=== PATIENT | male | born 1965 | race Caucasian/White ===

== ENCOUNTER 2016-07-17 14:06 | Emergency (ER) | payer SELFPAY ==
[2016-07-17 14:20] VITALS: BP 155/69; BMI 51.3
--- NOTE | 2016-07-17 14:50 | DR.GENAD ---
HPI - PCP Primary Care Physician: nfd - Complaint/Symptoms Chief Complaint:: patient stated 2 days patient said he steped on a pot hole. and yesterday he just laid in bed all day untill todaywhen he said his leg got worse. Self Treatment fo Chief Complaint: none - Nurses notes reviewed Nurses Notes Review: Yes - Source History Provided: Patient - Mode of Arrival Mode of Arrival: Wheelchair - Timing Onset of Chief Complaint: 07/15/16 Came on: Suddenly - Duration Duration: Constant How lon Duration: Days - Location Location: left knee - Severity Severity: Moderate - Modifying Factors Worsens:: movement - Associated Signs and Symptoms Associated Signs and Symptoms: swelling pain PMH - PMH Past Medical History: Yes Past Medical History: COPD, Migraines, Headaches, Hypertension Past Surgical History: Yes Surgical History: Ortho Surgery - Family History History of Family Medical Conditions: Yes Family Medical History: Diabetes Mellitus, Coronary Artery Disease, Hypertension - Social History Does patient currently use any type of tobacco product: Yes Have you used tobacco products in the last 12 months: Yes Type of Tobacco Use: Cigarettes How many years tobacco product used: 5 Does any household member use tobacco: No Alcohol Use: Occasionally Do you use any recreational Drugs:: No Lives With: Family Lives Where: Home - infectious screening In the last 2 months have you had wt loss of >10#?: NO Have you had fever, night sweats or hemotysis?: No Have you traveled outside the country in the last 6 months?: No Isolation: Standard ROS - Review of Systems Constitutional: No Symptoms Reported Eyes: No Symptoms Reported ENTM: No Symptoms Reported Respiratoy: No Symptoms Reported Cardiovascular: No Symptoms Reported Gastrointestinal/Abdominal: No Symptoms Reported Genitourinary: No Symptoms Reported Neurological: No Symptoms Reported Musculoskeletal: Left (pain), Knee Integumentary: No Symptoms Reported Hematologic/Lymphatic: No Symptoms Reported Endocrine: No Symptoms Reported Psychiatric: No Symptoms Reported PE - Vital Signs Vitals: Temperature 98.4 F Pulse Rate 103 Respiratory Rate 16 Blood Pressure 155/69 O2 Sat by Pulse Oximetry 98 - General Limitations: No Limitations General Appearance: Alert - Head Head Exam: Normal Inspection - Eyes Eye exam: EOMI. negative: Scleral Icterus, Conjunctival Injection - ENT ENT Exam: Normal Exam External Ear Exam: Normal External Inspection Nose Exam: Normal Nose Exam Mouth Exam: Normal Inspection - Neck Neck Exam: Normal Inspection, Full ROM, Trachea Midline - Chest Chest Inspection: Normal Inspection - Respiratory Respiratory Exam: negative: Accessory Muscle Use, Respiratory Distress - Extremities Extremities Exam: Normal Inspection, Tenderness (left knee). negative: Full ROM - Neurologic Neurological Exam: Alert, Oriented X3, CN II-XII Intact - Psychiatric Psychiatric Exam: Normal Mood - Skin Skin Exam: Intact, Normal Color ROR - XRAY XRAY Interpreted by: Radiologist XRAY Findings: left knee: lateral tibia plateau fx Procedures - Splinting Splint: knee immobilizer - Diagnosis Discharge Problem: Knee fracture, left - Discharge Plan Condition: Stable Prescriptions: Hydrocodone-Acetaminophen [Lortab 5-325 mg] 1 tab PO Q4-6H PRN #24 tab PRN Reason: Pain - Follow ups/Referrals Follow ups/Referrals: NFD,None [Primary Care Provider] - 3 days - Instructions
[2016-07-17] MEDS ORDERED: TORADOL 60 MG VIAL IM ONE (14:54)
[2016-07-17] MEDS ORDERED: TORADOL 60 MG VIAL ONE (15:05)
--- NOTE | 2016-07-17 15:35 | RAD ---
Left knee four views Indication: Pain after injury here. Audible popping noise. Findings: There is lateral tibial plateau fracture, minimally displaced. Joint effusion is present. There is degenerative change with multi compartment joint space narrowing. Impression: Lateral tibial plateau fracture. Consider CT followup or MR followup to further characte rize and evaluate for ligament injury. THE AVAILABILITY OF THE REPORT AND FINDINGS WERE COMMUNICATED TO Dr. George by Dr. Cardona on July 17, 2016 at 3:24 p.m. Reported By:
== END 2016-07-17 15:56 | disposition home or self-care (01) ==
LOC: ER 14:24
DX: S82.123A Displaced fracture of lateral condyle of unspecified tibia, initial encounter for closed fracture (principal); W17.2XXA Fall into hole, initial encounter; Y92.9 Unspecified place or not applicable
CPT/HCPCS: 29505; 73564; 96372; 99283; J1885

== ENCOUNTER 2016-07-26 22:54 | Emergency (ER) | payer SELFPAY ==
[2016-07-26 23:11] VITALS: BP 155/73; BMI 51.8
--- NOTE | 2016-07-27 00:31 | DR.GENAD ---
HPI - PCP Primary Care Physician: nfd - Complaint/Symptoms Chief Complaint Doctors Comments: Patient was sustaine a fracture of the left lower extremity seven days ago.He had a cast placed and it was removed by patient stating the his led was swelling. He was seen two days ago in [place] for evaluation of the left extremity which was swollen, patient took off the cast he has been take twice as much medication as prescribed. He weights 420 lbs and reports that the dose has habe been taking has not been enough to relieved the pain. He is on lasix bid. Chief Complaint:: patient left leg was broke last thursday. was seen in [place] 2 days ago and today his leg has 4+ pitting edema and hurting. - Source History Provided: Patient - Mode of Arrival Mode of Arrival: Ambulatory - Timing Onset of Chief Complaint: 07/21/16 PMH - PMH Past Medical History: Yes Past Medical History: COPD, Migraines, Headaches, Hypertension Past Surgical History: Yes Surgical History: Ortho Surgery - Family History History of Family Medical Conditions: Yes Family Medical History: Diabetes Mellitus, Coronary Artery Disease, Hypertension - Social History Does patient currently use any type of tobacco product: Yes Have you used tobacco products in the last 12 months: Yes Type of Tobacco Use: Cigarettes How many years tobacco product used: 20 Does any household member use tobacco: No Alcohol Use: None Do you use any recreational Drugs:: No Lives With: Family Lives Where: Home - infectious screening In the last 2 months have you had wt loss of >10#?: NO Have you had fever, night sweats or hemotysis?: No Have you traveled outside the country in the last 6 months?: No Isolation: Standard ROS - Review of Systems Constitutional: No Symptoms Reported Eyes: No Symptoms Reported ENTM: No Symptoms Reported Respiratoy: No Symptoms Reported Cardiovascular: No Symptoms Reported Gastrointestinal/Abdominal: No Symptoms Reported Genitourinary: No Symptoms Reported Neurological: No Symptoms Reported Musculoskeletal: Left, Leg (pain) Integumentary: Other (one blister formation left distal leg) Hematologic/Lymphatic: No Symptoms Reported Endocrine: No Symptoms Reported Psychiatric: No Symptoms Reported All Other Systems: Reviewed and Negative PE - Vital Signs Vitals: Temperature 98.6 F Pulse Rate 101 Respiratory Rate 16 Blood Pressure 155/73 O2 Sat by Pulse Oximetry 100 - General Limitations: Language Barrier General Appearance: Alert, In No Apparent Distress - Head Head Exam: Normal Inspection, Atraumatic - Eyes Eye exam: Normal Appearance, PERRL, EOMI - ENT ENT Exam: Normal Exam External Ear Exam: Normal External Inspection TM/Canal Exam: Bilateral Normal Nose Exam: Normal Nose Exam Mouth Exam: Normal Inspection Throat Exam: Normal Inspection - Neck Neck Exam: Normal Inspection - Chest Chest Inspection: Normal Inspection - Respiratory Respiratory Exam: Normal Lung Sounds Bilat Respiratory Exam: Bilateral Clear to Auscultation - Cardiovascular Cardiovascular Exam: Regular Rate, Normal Rhythm - Abdominal Exam Abdominal Exam: Normal Inspection, Normal Bowel Sounds Abdominal Tenderness: negative: RUQ, RLQ, LUQ, LLQ, Epigastrium, Suprapubic, Diffuse, Mild, Moderate, Severe, Other - Extremities Extremities Exam: Edema (lower left extremity) - Back Back Exam: Normal Inspection - Neurologic Neurological Exam: Alert, Oriented X3, CN II-XII Intact - Psychiatric Psychiatric Exam: Normal Affect - Skin Skin Exam: Warm, Dry - Diagnosis Discharge Problem: Aftercare for healing pathologic fracture of lower leg - Discharge Plan Condition: Stable - Follow ups/Referrals Follow ups/Referrals: NFD,None [Primary Care Provider] - 3 days - Instructions
[2016-07-27] MEDS ORDERED: TORADOL 60 MG VIAL IM ONE (00:51)
[2016-07-27] MEDS ORDERED: TORADOL 60 MG VIAL ONE (00:58)
== END 2016-07-27 01:19 | disposition home or self-care (01) ==
LOC: ER 22:54
DX: M84.469D Pathological fracture, unspecified tibia and fibula, subsequent encounter for fracture with routine healing (principal)
CPT/HCPCS: 96372; 99282; J1885

== ENCOUNTER 2016-11-24 21:52 | Emergency (ER) | payer SELFPAY ==
[2016-11-24 22:03] VITALS: BP 173/84; BMI 51.2
--- NOTE | 2016-11-24 22:20 | DR.GENAD ---
HPI - PCP Primary Care Physician: NFD - HPI Comment HPI Comment: HELPING SOMEONE WHO FELL ON PATIENT. COMPLAINING OF PAIN IN RIGHT HIP AND GROIN PAIN. HE IS HERE VIA RESCULE. NO LOC. - Complaint/Symptoms Chief Complaint Doctors Comments: INJURY TO RIGHT HIP AND LEFT KNEE TONIGHT. Chief Complaint:: "I was trying to help someone in the yard and they fell on me. I felt something pop in my left knee. I broke my leg on that side a while back but it healed up. I also have a bad pain in my right groin area and my ankle got tied up under the jassi as well. I have neuropathy so I can't feel anything in my lower legs/feet, but I noticed that I can barely walk." - Nurses notes reviewed Nurses Notes Review: Yes - Source History Provided: Patient - Mode of Arrival Mode of Arrival: Stretcher - Timing Onset of Chief Complaint: 11/24/16 Came on: Suddenly - Duration Duration: Constant Duration: Hours - Severity Severity: None, Moderate, Severe PMH - PMH Past Medical History: Yes Past Medical History: COPD, Migraines, Headaches, Hypertension Past Surgical History: Yes Surgical History: Ortho Surgery, Tonsillectomy Past Surgical History Comment: Ankle - Family History History of Family Medical Conditions: Yes Family Medical History: Diabetes Mellitus, Coronary Artery Disease, Hypertension - Social History Does patient currently use any type of tobacco product: No Type of Tobacco Use: None Does any household member use tobacco: No Alcohol Use: DAILY Do you use any recreational Drugs:: No Lives With: Alone Lives Where: Home - infectious screening In the last 2 months have you had wt loss of >10#?: NO Have you had fever, night sweats or hemotysis?: No Have you traveled outside the country in the last 6 months?: No Isolation: Standard ROS - Review of Systems Constitutional: No Symptoms Reported Eyes: No Symptoms Reported ENTM: No Symptoms Reported Respiratoy: No Symptoms Reported Cardiovascular: No Symptoms Reported Gastrointestinal/Abdominal: No Symptoms Reported Genitourinary: No Symptoms Reported Neurological: Numbness (TINGLING LOWER EXTREKK) Musculoskeletal: Hip (RIGHT), Knee (LEFT) Integumentary: Bruises (AND ABRASIONS) Hematologic/Lymphatic: No Symptoms Reported Endocrine: No Symptoms Reported All Other Systems: Reviewed and Negative PE - Vital Signs Vitals: Temperature 98.2 F Pulse Rate 95 Respiratory Rate 18 Blood Pressure 173/84 O2 Sat by Pulse Oximetry 97 - General Limitations: No Limitations General Appearance: Alert - Head Head Exam: Normal Inspection - Eyes Eye exam: Normal Appearance - ENT ENT Exam: Normal External Ear Exam External Ear Exam: Normal External Inspection TM/Canal Exam: Bilateral Normal Nose Exam: Normal Nose Exam Mouth Exam: Normal Inspection Throat Exam: Tonsillar Erythema - Chest Chest Inspection: Symmetric Chest Wall Rise - Respiratory Respiratory Exam: Normal Lung Sounds Bilat Respiratory Exam: Bilateral Clear to Auscultation - Cardiovascular Cardiovascular Exam: Regular Rate, Normal Rhythm, Normal Heart Sounds - Abdominal Exam Abdominal Exam: Normal Bowel Sounds, Soft. negative: Tenderness - Extremities Extremities Exam: Full ROM (LEFT KNEE AND RIGHTHHIPAND RT GROIN TENDER.), Tenderness, Joint Swelling (RIGHT HIP AND LT KNEE) - Back Back Exam: Normal Inspection - Neurologic Neurological Exam: Alert, Oriented X3 - Psychiatric Psychiatric Exam: Normal Affect, Normal Mood - Skin Skin Exam: Erythema, Other (ABRASIONS RIGHT LEG AND HANDS.) MDM - Differential Diagnosis Differential Diagnosis: FRACTURE, STRAIN, CONTUSION RIFGT HIP AND SKIN ABRASIONS. Course - Education/Counseling Education/Counseling: Patient, Education Educated On: Treatment, Diagnosis, Needs for Follow Up ROR - XRAY XRAY Interpreted by: Radiologist XRAY Findings: REPORT DISCUSS WITH PATIENT. - Diagnosis Discharge Problem: Sprain of left knee, Sprain of right hip, Abrasion - Discharge Plan Disposition: 01 HOME, SELF-CARE Condition: Stable Prescriptions: Cyclobenzaprine HCl [FLEXERIL 10 MG *] 10 mg PO TID #20 tab Ibuprofen [MOTRIN TAB 800 MG *] 800 mg PO Q8H PRN #20 tab PRN Reason: Pain/Inflammation - Follow ups/Referrals Follow ups/Referrals: NFD,None [Primary Care Provider] - 2 days BRANDI ALCANTAR [STAFF PHYSICIAN] - 2 days - Instructions Instructions: Knee Pain, Musculoskeletal Pain Additional Instructions: RETURN TO ED IF WORSE. YOU ALSO HAVE RIGHT KIP STAIN.
[2016-11-24] MEDS ORDERED: TORADOL 60 MG VIAL IM ONE (22:22)
[2016-11-24] MEDS ORDERED: TORADOL 60 MG VIAL IVP ONE (22:23)
[2016-11-24] MEDS ORDERED: TORADOL 30 MG VIAL ONE (22:25)
--- NOTE | 2016-11-24 23:10 | RAD ---
EXAM: Right hip x-ray INDICATION: Hip Pain COMPARISION: No priors for comparison TECHNIQUE: Two views FINDINGS: No acute fracture or dislocation. The joint spaces are preserved. The soft tissues are normal. No ra diopaque foreign body. IMPRESSION: Normal right hip x-ray exam Reported By:
--- NOTE | 2016-11-24 23:11 | RAD ---
EXAM: Left knee x-ray INDICATION: Knee Pain COMPARISION: Prior exam from July 17, 2016 TECHNIQUE: AP, lateral, patella, and oblique, 4 views FINDINGS: Moderate osteoarthritic changes are seen in the lateral compartment with milder changes seen mediall y and at the patellofemoral joint. No acute fracture or dislocation. No joint effusion. IMPRESSION: Tricompartmental osteoarthritis. Changes are most advanced in the lateral compartment of the knee. Reported By:
== END 2016-11-24 23:48 | disposition home or self-care (01) ==
LOC: ER 22:02
DX: S83.92XA Sprain of unspecified site of left knee, initial encounter (principal); S73.101A Unspecified sprain of right hip, initial encounter; T14.8 Other injury of unspecified body region; X58.XXXA Exposure to other specified factors, initial encounter; Y92.096 Garden or yard of other non-institutional residence as the place of occurrence of the external cause; M17.9 Osteoarthritis of knee, unspecified
CPT/HCPCS: 73501; 73564; 96365; 96374; 99282; J1885

== ENCOUNTER 2017-08-06 02:24 | Observation (INO) | payer SELFPAY ==
--- NOTE | 2017-08-06 02:42 | DR.GENAD ---
HPI - PCP Primary Care Physician: [facility] - HPI Comment HPI Comment: PATIENT WAS TREATED WITH IM STERIOD AND IM ANTIOTIC IN PCP OFFICE YESTERDAY. TONIGHT GIVEN ASPIRIN BY EMS. - Complaint/Symptoms Chief Complaint Doctors Comments: PRECORDIAL CHEST PAIN TIMES 2HRS. CURRENTLY ON MED FOR SINUSITIS. INCREASING SOB ALSO. NO FEVER. PAIN ASSOCIATED WITH SOB AND WEAKNESS. Chief Complaint:: pt states" my chest started hurting about 2 hours ago. It's been going on for 2 or 3 weeks I just figured I'd come get checked out. It only hurts about a 2 right now, but it was a 8 2 hours ago. pain worse when i breathe in. I got a sinus infection I got 2 shots today for it at the [facility]" - Nurses notes reviewed Nurses Notes Review: Yes - Source History Provided: Patient - Mode of Arrival Mode of Arrival: EMS - Timing Onset of Chief Complaint: 07/22/17 Came on: Suddenly - Duration Duration: Constant Duration: Days - Severity Severity: Moderate PMH - PMH Past Medical History: Yes Past Medical History: COPD, Migraines, Headaches, Hypertension Past Medical History Comment: bipolar Past Surgical History: Yes Surgical History: Ortho Surgery, Tonsillectomy - Family History History of Family Medical Conditions: Yes Family Medical History: Diabetes Mellitus, Coronary Artery Disease, Hypertension - Social History Does patient currently use any type of tobacco product: Yes Have you used tobacco products in the last 12 months: Yes Type of Tobacco Use: Cigarettes Does any household member use tobacco: Yes Alcohol Use: Occasionally Do you use any recreational Drugs:: No Lives With: Family Lives Where: Home - infectious screening In the last 2 months have you had wt loss of >10#?: NO Have you had fever, night sweats or hemotysis?: No Have you traveled outside the country in the last 6 months?: No ROS - Review of Systems Constitutional: Diaphoresis, Weakness, Fatigue. negative: Chills, Fever Eyes: Tearing. negative: Eye Pain, Discharge ENTM: Nose Discharge, Nose Congestion, Throat Pain. negative: Ear Pain Respiratoy: Productive Cough, Short of Breath, Wheezing. negative: Hemoptysis Cardiovascular: Chest Pain Gastrointestinal/Abdominal: No Symptoms Reported Genitourinary: negative: Dysuria, Frequency, Hematuria Neurological: Headache, Weakness, Dizziness Musculoskeletal: No Symptoms Reported Integumentary: No Symptoms Reported Hematologic/Lymphatic: No Symptoms Reported Endocrine: No Symptoms Reported All Other Systems: Reviewed and Negative PE - Vital Signs Vitals: Temperature 98.9 F Pulse Rate [Apical] 88 Pulse Rate 104 Respiratory Rate 22 Blood Pressure [Right Arm] 141/69 Blood Pressure 194/94 O2 Sat by Pulse Oximetry 95 - General Limitations: No Limitations General Appearance: Alert - Head Head Exam: Normal Inspection - Eyes Eye exam: Normal Appearance - ENT ENT Exam: Normal External Ear Exam External Ear Exam: Normal External Inspection TM/Canal Exam: Bilateral Normal Nose Exam: Normal Nose Exam Mouth Exam: Normal Inspection Throat Exam: Normal Inspection - Neck Neck Exam: Trachea Midline - Chest Chest Inspection: Symmetric Chest Wall Rise - Respiratory Respiratory Exam: Normal Lung Sounds Bilat Respiratory Exam: Bilateral Wheezing, Bilateral Rhonchi, Upper Wheezing, Upper Rhonchi, Lower Wheezing, Lower Rhonchi - Cardiovascular Cardiovascular Exam: Regular Rate, Normal Rhythm, Normal Heart Sounds - Abdominal Exam Abdominal Exam: Normal Bowel Sounds, Soft. negative: Tenderness - Extremities Extremities Exam: Edema - Back Back Exam: Paraspinal Tenderness - Neurologic Neurological Exam: Alert, Oriented X3. negative: Motor Sensory Deficit - Psychiatric Psychiatric Exam: Normal Affect, Normal Mood - Skin Skin Exam: Erythema MDM - Differential Diagnosis Differential Diagnosis: CHEST PAIN, RESPIRATORY DISTRESS. DC, PUD, SINUSITIS Course - Treatment Treatment: SEE ORDERS. - Consultation Consultation Comments: DISCUSS PATIENT WITHDR. KEYS. HE WILL ADMIT PATIENT. - Education/Counseling Education/Counseling: Patient, Education Educated On: Treatment, Diagnosis ROR - Labs Reviewed Laboratory Results Reviewed?: Yes Result Diagrams: 08/06/17 03:01 08/06/17 03:01 Laboratory: WBC 11.0 X10^3/uL (3.6-10.0) H 08/06/17 03:01 RBC 5.21 X10^6/uL (4.7-6.0) 08/06/17 03:01 Hgb 16.9 g/dL (13.5-18.0) 08/06/17 03:01 Hct 49.2 % (42.0-54.0) 08/06/17 03:01 MCV 94.5 fL (80.0-100.0) 08/06/17 03:01 MCH 32.5 pg (27.0-34.0) 08/06/17 03:01 MCHC 34.4 g/dL (33.0-35.0) 08/06/17 03:01 RDW 15.6 % (11.6-16.5) 08/06/17 03:01 Plt Count 248 X10^3/uL (150.0-450.0) 08/06/17 03:01 MPV 10.0 fL (7.4-11.0) 08/06/17 03:01 Neut % (Auto) 90.0 % (42.0-75.0) H 08/06/17 03:01 Lymph % (Auto) 7.7 % (21.0-51.0) L 08/06/17 03:01 Trigg % (Auto) 2.0 % (0.0-13.0) 08/06/17 03:01 Eos % (Auto) 0.0 % (0.9-2.9) L 08/06/17 03:01 Baso % (Auto) 0.3 % (0.2-1.0) 08/06/17 03:01 Neut # (Auto) 9.9 x10^3/uL (2.2-4.8) H 08/06/17 03:01 Lymph # (Auto) 0.8 X10^3/uL (1.3-2.9) L 08/06/17 03:01 Trigg # (Auto) 0.2 x10^3/uL (0.3-0.8) L 08/06/17 03:01 Eos # (Auto) 0.0 x10^3/uL (0.0-0.2) 08/06/17 03:01 Baso # (Auto) 0.0 X10^3/uL (0.0-0.1) 08/06/17 03:01 Absolute Nucleated RBC 0.0 /100WBC 08/06/17 03:01 INR Target Range - 08/06/17 03:01 INR 0.93 (0.8-1.3) 08/06/17 03:01 APTT 35.6 SECONDS (22.9-36.5) 08/06/17 03:01 PTT Comment - 08/06/17 03:01 Sodium 139 mmol/L (136-145) 08/06/17 03:01 Corrected Sodium 141 mmol/L (136-145) 08/06/17 03:01 Potassium 4.8 mmol/L (3.5-5.1) 08/06/17 03:01 Chloride 101 mmol/L (98-107) 08/06/17 03:01 Carbon Dioxide 31.1 mmol/L (21-32) 08/06/17 03:01 BUN 9 mg/dL (7-18) 08/06/17 03:01 Creatinine 1.04 mg/dL (0.70-1.30) 08/06/17 03:01 Est GFR (MDRD) Af Amer > 60 (>60) 08/06/17 03:01 Est GFR (MDRD) Non-Af > 60 (>60) 08/06/17 03:01 Glucose 167 mg/dL (65-99) H 08/06/17 03:01 Lactic Acid 3.0 mmol/L (0.4-2.0) H 08/06/17 03:01 Calcium 9.4 mg/dL (8.5-10.1) 08/06/17 03:01 Corrected Calcium TNP 08/06/17 03:01 Magnesium 2.1 mg/dL (1.7-2.9) 08/06/17 03:01 Total Bilirubin 0.30 mg/dL (0.2-1.0) 08/06/17 03:01 AST 38 Units/L (15-37) H 08/06/17 03:01 ALT 76 Units/L (12-78) 08/06/17 03:01 Alkaline Phosphatase 92 Units/L (46-116) 08/06/17 03:01 Creatine Kinase 82 Units/L (39-308) 08/06/17 06:22 CK-MB (CK-2) 1.9 ng/mL (0-4.0) 08/06/17 06:22 CK/CKMB % Calc 2.3 % (<4) 08/06/17 06:22 Troponin I 0.05 ng/mL (0-1.5) 08/06/17 06:22 C-Reactive Protein 5.40 mg/L (0-3.0) H 08/06/17 03:01 Total Protein 8.1 g/dL (6.4-8.2) 08/06/17 03:01 Albumin 3.9 g/dL (3.4-5.0) 08/06/17 03:01 Globulin 4.2 g/dL (2.5-4.5) 08/06/17 03:01 Albumin/Globulin Ratio 0.9 Ratio (1.1-2.1) L 08/06/17 03:01 Specimen Type Clean catch urine 08/06/17 04:34 Urine Color Yellow (YELLOW) 08/06/17 04:34 Urine Appearance Clear (CLEAR) 08/06/17 04:34 Urine pH 7.0 (5.0 - 8.0) 08/06/17 04:34 Ur Specific [place] 1.010 (1.000-1.030) 08/06/17 04:34 Urine Protein 1+ (NEGATIVE) 08/06/17 04:34 Urine Glucose (UA) Negative (NEGATIVE) 08/06/17 04:34 Urine Ketones Negative (NEGATIVE) 08/06/17 04:34 Urine Occult Blood 1+ (NEGATIVE) 08/06/17 04:34 Urine Nitrite Negative (NEGATIVE) 08/06/17 04:34 Urine Bilirubin Negative (NEGATIVE) 08/06/17 04:34 Urine Urobilinogen Normal (NORMAL) 08/06/17 04:34 Ur Leukocyte Esterase 1+ (NEGATIVE) 08/06/17 04:34 Urine RBC None seen /HPF (NONE SEEN) 08/06/17 04:34 Urine WBC 0-2 /HPF (NONE SEEN) 08/06/17 04:34 Ur Squamous Epith Cells Negative /HPF (NEGATIVE) 08/06/17 04:34 Urine Bacteria Trace /HPF (NEGATIVE) 08/06/17 04:34 Ur Culture Indicated? No/not indicated 08/06/17 04:34 - XRAY XRAY Interpreted by: Radiologist XRAY Findings: REPORT DISCUSS WITH PATIENT. - EKG Rhythm: NSR (EKG NOTED) - Diagnosis Discharge Problem: SOB (shortness of breath) Chest pain Qualifiers: Chest pain type: precordial pain Qualified Code(s): R07.2 - Precordial pain Sinusitis Qualifiers: Sinusitis location: unspecified location Chronicity: acute Recurrence: not specified as recurrent Qualified Code(s): J01.90 - Acute sinusitis, unspecified - Discharge Plan Condition: Stable - Follow ups/Referrals Follow ups/Referrals: NFD,None [Primary Care Provider] - 3 days - Instructions
[2017-08-06 03:23] LABS: BASOPHILS % (AUTO) 0.3 % (0.2-1.0); HEMATOCRIT 49.2 % (42.0-54.0); HEMOGLOBIN 16.9 g/dL (13.5-18.0); LYMPHOCYTES # (AUTO) 0.8 X10^3/uL (1.3-2.9); LYMPHOCYTES % (AUTO) 7.7 % (21.0-51.0); MEAN CORPUSCULAR HEMOGLOBIN 32.5 pg (27.0-34.0); MEAN CORPUSCULAR HGB CONC 34.4 g/dL (33.0-35.0); MEAN CORPUSCULAR VOLUME 94.5 fL (80.0-100.0); MONOCYTES # (AUTO) 0.2 x10^3/uL (0.3-0.8); NEUTROPHILS # (AUTO) 9.9 x10^3/uL (2.2-4.8); PLATELET COUNT 248 X10^3/uL (150.0-450.0); RED BLOOD COUNT 5.21 X10^6/uL (4.7-6.0); RED CELL DISTRIBUTION WIDTH 15.6 % (11.6-16.5)
[2017-08-06 03:51] LABS: ALANINE AMINOTRANSFERASE 76 Units/L (12-78); ALBUMIN 3.9 g/dL (3.4-5.0); ALKALINE PHOSPHATASE 92 Units/L (46-116); ASPARTATE AMINO TRANSFERASE 38 Units/L (15-37); BLOOD UREA NITROGEN 9 mg/dL (7-18); CALCIUM 9.4 mg/dL (8.5-10.1); CARBON DIOXIDE 31.1 mmol/L (21-32); CHLORIDE 101 mmol/L (98-107); CKMB % 1.9 % (<4); COR NA(FOR HYPERGLY) 141 mmol/L (136-145); CREATINE KINASE 84 Units/L (39-308); CREATINE KINASE MB 1.6 ng/mL (0-4.0); CREATININE 1.04 mg/dL (0.70-1.30); MAGNESIUM 2.1 mg/dL (1.7-2.9); SODIUM 139 mmol/L (136-145); TOTAL PROTEIN 8.1 g/dL (6.4-8.2); TROPONIN I 0.08 ng/mL (0-1.5); eGFR BLACK RACES > 60 (>60); eGFR NON BLACK RACES > 60 (>60)
[2017-08-06 03:54] LABS: C-REACTIVE PROTEIN 5.4 mg/L (0-3.0)
[2017-08-06] MEDS ORDERED: ROCEPHIN 1 GM IV PREMIX 1 GM/50 ML IV.SOLN. IV ONE ×2 (04:05→04:16)
[2017-08-06] MEDS: NITROSTAT SL PRN ×3 (05:04→12:20)
[2017-08-06 05:08] LABS: BILIRUBIN,URINE NEGATIVE (NEGATIVE); BLOOD/HEMOGLOBIN,URINE 1+ (NEGATIVE); GLUCOSE, URINE NEGATIVE (NEGATIVE); KETONES,URINE NEGATIVE (NEGATIVE); LEUKOCYTE ESTERASE ,URINE 1+ (NEGATIVE); NITRITES,URINE NEGATIVE (NEGATIVE); PROTEIN,URINE 1+ (NEGATIVE); UROBILINOGEN,URINE NORMAL (NORMAL)
[2017-08-06 05:15] LABS: APPEARANCE,URINE CLEAR (CLEAR); COLOR,URINE YELLOW (YELLOW)
[2017-08-06 05:16] LABS: RBC,URINE NONE SEEN /HPF (NONE SEEN); SQUAMOUS EPITHELIAL CELL,UR NEGATIVE /HPF (NEGATIVE)
[2017-08-06 05:17] LABS: BACTERIA,URINE TRACE /HPF (NEGATIVE)
[2017-08-06 07:42] LABS: CKMB % 2.3 % (<4); CREATINE KINASE MB 1.9 ng/mL (0-4.0); TROPONIN I 0.05 ng/mL (0-1.5)
[2017-08-06] MEDS ORDERED: NS 1/2 1000 ML IV 1,000 ML IV SCH (08:00)
[2017-08-06] MEDS ORDERED: ZOSYN VIAL 3.375 GM 3.375 GM in NS 100 ML IV + SPIKE MINIBAG* 100 ML IV SCH (08:00)
[2017-08-06] MEDS: MORPHINE SULFATE INJ 4 MG IVP PRN ×2 (09:06→12:15)
[2017-08-06] MEDS ORDERED: NS 1/2 1000 ML IV 1,000 ML IV ONE (09:39)
[2017-08-06] MEDS: ASPIRIN EC 81 MG PO SCH ×2 (09:42→11:12)
[2017-08-06 10:14] VITALS: BMI 52.1
[2017-08-06 11:17] LABS: CKMB % 2.7 % (<4); CREATINE KINASE MB 2.1 ng/mL (0-4.0); TROPONIN I 0.1 ng/mL (0-1.5)
[2017-08-06 13:04] LABS: CKMB % 2.1 % (<4); CREATINE KINASE MB 2.5 ng/mL (0-4.0); TROPONIN I 0.11 ng/mL (0-1.5)
[2017-08-06] MEDS ORDERED: ADRENALINE CHL INJ (ABBOJECT) ONE (13:37)
[2017-08-06] MEDS ORDERED: SODIUM BICARBONATE 8.4% INJ ADULT ONE (13:37)
[2017-08-06] MEDS ORDERED: CORDARONE INJ 150 MG VIAL ONE (13:37)
[2017-08-06 14:12] VITALS: BP 176/80
== END 2017-08-06 15:10 | disposition expired | DRG 313 ==
LOC: ER 02:24 → MED/SURG 07:49
PROVIDERS: ADMIT Internal Medicine; ATTEND Internal Medicine
PROC: 0BH17EZ Insertion of Endotracheal Airway into Trachea, Via Natural or Artificial Opening (ICD-10-PCS; principal; 2017-08-06)
PROC: 5A1935Z Respiratory Ventilation, Less than 24 Consecutive Hours (ICD-10-PCS; 2017-08-06)
DX: R07.2 Precordial pain (principal); I46.9 Cardiac arrest, cause unspecified; R06.02 Shortness of breath; R53.1 Weakness; J44.9 Chronic obstructive pulmonary disease, unspecified; I10 Essential (primary) hypertension; J01.90 Acute sinusitis, unspecified; R79.82 Elevated C-reactive protein (CRP)
CPT/HCPCS: 36415; 71046; 80053; 81001; 82550; 82553; 83605; 83735; 84484; 85025; 85610; 85730; 86140; 87040; 93005; 94760; 96365; 96374; 96375; 99284; A4222; G0378; J0170; J0282; J0696; J2270; J2543; J3490